=== PATIENT | female | born 1995 | race Two or more races ===

== ENCOUNTER 2025-03-18 15:45 | Emergency (ER) | payer OTHER, SELFPAY ==
[2025-03-18 15:45] VITALS: BMI 27.4
[2025-03-18 15:52] VITALS: BP 124/82; PULSE 72; RESP 18; TEMP 37; O2SAT 98
--- NOTE | 2025-03-18 15:54 | XR_ITS ---
EXAMINATION: Ankle, left 3 views. Technique: Ankle AP, oblique, lateral 3 views Date and time of exam: March 18, 2025, 1603 hours INDICATIONS: Injury to ankle 1 week ago with ankle pain. FINDINGS: No fracture or dislocation No foreign body IMPRESSION: No fracture or dislocation
--- NOTE | 2025-03-18 16:19 | EDNOTE_ITS ---
Lower Extremity Injury RME/HPI General Chief Complaint: Ankle/Foot Injury Stated Complaint: LEFT ANKLE PAIN FROM INJURY AT WORK Time Seen by Provider: 03/18/25 15:54 Source: patient Arrival date/time: 03/18/25 15:45 29-year-old female with no known medical history presents to the emergency room with a chief complaint of tenderness to her left ankle after dropping metal cooking pans on her left ankle Mode of arrival: ambulatory Limitations: no limitations Related Data Previous Rx's ?Medication ?Instructions ?Recorded ibuprofen 600 mg tablet 600 mg PO Q8H PRN fever or p ain 03/18/25 #20 tabs Allergies Allergy/AdvReac Type Severity Reaction Status Date / Time No Known Allergies Allergy Verified 03/18/25 15:48 Review of Systems Review of Systems Systems Reviewed: All systems reviewed, normal except as documented Constitutional Constitutional: Reports system reviewed and no additional complaints, except as documented, Denies fatigue, Denies fever(s), Denies headache(s) and Denies weakness Eyes Eyes: Reports system reviewed and no additional complaints, except as documented, Denies blurry vision and Denies change in vision ENT Ears, Nose, Mouth, and Throat: Reports system reviewed and no additional complaints, except as documented, Denies otalgia, Denies headache(s), Denies nasal congestion, Denies throat swelling and Denies vertigo Cardiovascular Cardiovascular: Reports system reviewed and no additional complaints, except as documented, Denies chest pain, Denies dyspnea and Denies dyspnea on exertion Respiratory Respiratory: Reports system reviewed and no additional complaints, except as documented, Denies chest congestion, Denies cough, Denies dyspnea, Denies dyspnea on exertion and Denies wheezing Gastrointestinal Gastrointestinal: Reports system reviewed and no additional complaints, except as documented, Denies abdominal pain, Denies cramping, Denies nausea and Denies vomiting Genitourinary Genitourinary: Reports system reviewed and no additional complaints, except as documented Musculoskeletal Musculoskeletal: Reports system reviewed and no additional complaints, except as documented, Reports abnormal gait, Reports arthralgias and Denies back pain Integumentary/Breasts Skin/Breast: Reports system reviewed and no additional complaints, except as documented and Denies wounds Neurologic Neurologic: Reports system reviewed and no additional complaints, except as documented, Reports abnormal gait, Denies confusion, Denies headache(s), Denies lack of coordination, Denies vertigo and Denies weakness Psychiatric Psychiatric: Reports system reviewed and no additional complaints, except as documented, Denies anxiety, Denies confusion, Denies depression, Denies paranoia, Denies suicidal ideation and Denies tactile hallucinations Endocrine Endocrine: Reports system reviewed and no additional complaints, except as documented and Denies fatigue Hematologic/Lymphatic Hematologic/Lymphatic: Reports system reviewed and no additional complaints, except as documented and Denies lymphadenopathy Allergic/Immunologic Allergic/Immunologic: Reports system reviewed and no additional complaints, except as documented, Denies throat swelling, Denies urticaria and Denies wheezing Past Medical History Social History SMOKING STATUS: Never smoker ED Exam General Limitations: Present no limitations General appearance: Present alert and in no apparent distress Head Head exam: Present atraumatic Eye Eye exam: Present normal appearance, PERRL and EOMI ENT ENT exam: Present normal exam, normal oropharynx and mucous membranes moist Neck Neck exam: Present normal inspection, full ROM and trachea midline Chest Chest inspection: Present normal inspection and symmetric chest wall rise Respiratory Respiratory exam: Present normal lung sounds bilaterally Cardiovascular Cardiovascular exam: Present regular rate, normal rhythm and normal heart sounds Abdominal Exam Abdominal exam: Present soft and normal bowel sounds Extremities Exam Extremities exam: Present normal inspection and full ROM Expanded Lower Extremity Exam Hip/Pelvis exam: Present normal inspection Upper leg exam: Present normal inspection Knee exam: Present normal inspection Lower leg exam: Present normal inspection Ankle exam: Present full ROM and tenderness; Absent swelling Gait: observed and limited by pain Back Exam Back exam: Present normal inspection and full ROM Neurological Exam Neurological exam: Present alert, oriented X3 and CN II-XII intact Psychiatric Psychiatric exam: Present normal affect and normal mood Skin Skin exam: Present warm, dry, intact and normal color Course Quality Measures none Orders Category Date Time Status XR ankle comp LT min 3V Stat Exams 03/18/25 15:54 Completed Vital Signs Vital signs: Vital Signs Temperature 98.6 F 03/18/25 15:52 Pulse Rate 72 03/18/25 15:52 Respiratory Rate 18 03/18/25 15:52 Blood Pressure 124/82 03/18/25 15:52 Pulse Oximetry (%) 98 03/18/25 15:52 Oxygen Delivery Method Room Air 03/18/25 15:52 Extremity Injury, Lower MDM Narrative MDM Narrative:: 29-year-old female with no known medical history presents to the emergency room with a chief complaint of tenderness to her left ankle after dropping metal cooking pans on her left ankle Patient is hemodynamically stable and in no apparent distress Physical examination shows tenderness to the left ankle with palpation. Patient is able to ambulate but states there is pain with ambulation X-ray of the ankle was completed and was negative for any acute fracture or dislocation Patient was discharged and educated to follow-up with primary care provider in the next 24 to 48 hours and return to the emergency room for any evidence of worsening signs or symptoms Patient data External records reviewed:: [facility] previous records Clinical information provided by:: patient Social determinants that could affect healthcare access:: none Patient has the following chronic illnesses:: No chronic illness How is presenting disease/condition affected by chronic disease/condition?: no chronic disease Evaluation data The following diagnostics were reviewed and interpreted by me:: lab results and radiology exam(s) Lab and/or radiology exams considered but not ordered:: Labs and radiology exams considered and ordered Interpretation Summary: X-ray left ankle-no acute fracture or dislocation Medications / Prescriptions Medications or Prescriptions considered but not ordered:: no medication given Medication administrations:: No medication given Consultations Consultation(s) initiated? (list below): No Diagnosis Extremity Injury, Lower Differential Diagnosis: ankle sprain and strain and ankle fracture Most likely diagnosis given after review of the tests above:: Ankle sprain and strain Admission Indicated Admission indicated?: not indicated Admission Request Was there a request for admission?: No Disposition Plan Disposition Plan: Discharge Discharge Attestation Discharge Attestation: The patient and all family members were given an opportunity to ask questions and understood the discharge instructions. Discharge instructions specifically effects, indications for sooner follow up or return to the emergency department, and the expected course of current diagnosis. Patient condition: Stable Discharge Plan Plan Patient Disposition: HOME (Self Care) Discharge Disposition comment: Stable Prescriptions/Referrals Prescriptions/Med Rec: New ibuprofen 600 mg tablet 600 mg PO Q8H PRN (Reason: fever or pain) Qty: 20 0RF Referrals: No Primary/Family,Physician [Primary Care Provider] - In 1 week Problem List Clinical Impression: Ankle sprain and strain Patient/Caregiver Discharge Instructions Additional Instructions: Please follow-up with your primary care provider in the next 24 to 48 hours X-rays of your ankle were negative for any acute findings For any evidence of worsening signs or symptoms return to the emergency room immediately Print Language: Kiswahili Stand Alone Forms: [employer] Award Info., Work/School Release, Patient Portal Info Letter PA/BODY BUILDER APPRENTICE Supervising Physician PA/BODY BUILDER APPRENTICE Supervising Physician: Dr. Rivas
== END 2025-03-18 17:09 | disposition home or self-care (01) ==
PROVIDERS: Emergency Provider Emergency Medicine
DX: S93.402A Sprain of unspecified ligament of left ankle, initial encounter (principal); S96.912A Strain of unspecified muscle and tendon at ankle and foot level, left foot, initial encounter; W20.8XXA Other cause of strike by thrown, projected or falling object, initial encounter; Y93.89 Activity, other specified; Y92.238 Other place in hospital as the place of occurrence of the external cause; Y99.0 Civilian activity done for income or pay
CPT/HCPCS: 73610; 99282

== ENCOUNTER 2025-04-08 00:23 | Emergency (ER) | payer MEDICAID, SELFPAY ==
[2025-04-08 00:25] VITALS: BMI 28.3
[2025-04-08 00:26] VITALS: BP 133/77; PULSE 100; RESP 18; TEMP 36.6; O2SAT 97
[2025-04-08 00:27] VITALS: PULSE 122; RESP 16; O2SAT 97; BMI 28.3
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
--- NOTE | 2025-04-08 00:42 | XR_ITS ---
Examination: Tibia-Fibula, bilateral , 4 views. Date and time of exam: April 08, 2025, 0117 hours INDICATIONS: Right and left lower leg AP lateral total 4 views Findings: Adequate bone density No fracture or dislocation involving either lower leg No foreign bodies Impression: No fracture or dislocation involving either lower leg
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
[2025-04-08] MEDS: HYDROcodone/APAP 5/325 TABLET 1 TAB PO (02:12)
--- NOTE | 2025-04-08 03:02 | PRELIM_ITS ---
CT maxillofacial without intravenous contrast (axial sections with sagittal and coronal reformats). April 08, 2025 0222 hours Clinical History: Injury Comparison: No prior study is available for comparison. Findings: There is no evidence of acute fracture. The maxillary sinus and orbital priteo are intact. No fluid levels are seen. No evidence of intraorbital hematoma, proptosis, globe injury or radiodense foreign body. There is mild mucosal thickening in the right maxillary sinus. There is a retention cyst or polyp in the left maxillary sinus. The zygomatic arches and mandible are intact. There is right parietal scalp contusion. Impression: 1. No evidence of acute maxillofacial fracture. 2. Right parietal scalp contusion. 3. Other findings as described above. Suggest clinical correlation and follow up accordingly. Report Electronically Signed By: Eligio Winslow 04/08/2025 3:02:13 AM [EST]
--- NOTE | 2025-04-08 03:02 | PRELIM_ITS ---
CT scan of the head without intravenous contrast (axial sections with sagittal and coronal reformats) April 08, 2025 0222 hours Clinical History: Injury Comparison: No prior study is available for comparison. Findings: There is no evidence of acute intracranial hemorrhage, mass effect or midline shift. The ventricles and CSF spaces are unremarkable. The calvarium is intact. There is mild mucosal thickening in the right maxillary sinus. There is a retention cyst or polyp in the left maxillary sinus. The mastoid air cells and the other visualized paranasal sinuses are clear. There is right parietal scalp contusion. Impression: 1. No evidence of acute intracranial hemorrhage, midline shift or calvarial fracture. 2. Right parietal scalp contusion. 3. Other findings as described above. Suggest clinical correlation and follow up accordingly. Please also refer to report of maxillofacial CT. Report Electronically Signed By: Eligio Winslow 04/08/2025 3:01:15 AM [EST]
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
[2025-04-08] MEDS: DIPHTH,PERTUSS(ACELL),TET VAC 0.5 ML SYR- ADULT IMi (03:46)
[2025-04-08 04:47] VITALS: BP 128/20; PULSE 100; RESP 20; TEMP 37; O2SAT 98
== END 2025-04-08 04:50 | disposition home or self-care (01) ==
PROVIDERS: Emergency Provider Emergency Medicine
DX: S93.401A Sprain of unspecified ligament of right ankle, initial encounter (principal); S83.92XA Sprain of unspecified site of left knee, initial encounter; S93.402A Sprain of unspecified ligament of left ankle, initial encounter; S83.91XA Sprain of unspecified site of right knee, initial encounter; S00.03XA Contusion of scalp, initial encounter; S80.12XA Contusion of left lower leg, initial encounter; S00.81XA Abrasion of other part of head, initial encounter; S60.512A Abrasion of left hand, initial encounter; S60.511A Abrasion of right hand, initial encounter; S89.92XA Unspecified injury of left lower leg, initial encounter; S89.91XA Unspecified injury of right lower leg, initial encounter; S60.222A Contusion of left hand, initial encounter; S60.221A Contusion of right hand, initial encounter; R07.9 Chest pain, unspecified; X50.1XXA Overexertion from prolonged static or awkward postures, initial encounter; V03.00XA Pedestrian on foot injured in collision with car, pick-up truck or van in nontraffic accident, initial encounter; Y93.01 Activity, walking, marching and hiking; Y92.410 Unspecified street and highway as the place of occurrence of the external cause; Z23 Encounter for immunization
CPT/HCPCS: 70450; 70486; 71045; 73120; 73562; 73590; 73600; 90471; 90715; 96372; 99283; J0696; J3490; A9270